=== PATIENT | male | born 2005 ===

== ENCOUNTER 2024-09-18 20:04 | Emergency (ER) | payer OTHER ==
[2024-09-18] MEDS ORDERED: Ibuprofen 800 MG TAB ONE (20:38)
[2024-09-18] MEDS ORDERED: Orphenadrine Citrate 100 MG ER.TAB ONE (20:38)
== END 2024-09-18 20:50 | disposition home or self-care (01) ==
LOC: ERS 20:04
DX: M62.830 Muscle spasm of back (principal); X50.0XXA Overexertion from strenuous movement or load, initial encounter; Y93.G3 Activity, cooking and baking
CPT/HCPCS: 99282